=== PATIENT | male | born 1970 | race Two or more races ===

== ENCOUNTER 2017-06-12 16:11 | Emergency (ER) | payer OTHER ==
[~2017-06-12] VITALS: Ht 193 cm; Wt 90.7 kg
[~2017-06-12 16:11] MED LIST: DICLOFENAC SODI50 MG PO; NORFLEX100MG PO
== END 2017-06-12 17:38 | disposition home or self-care (01) ==
LOC: ER 16:11
DX: M54.5 Low back pain (principal)

== ENCOUNTER 2017-07-08 07:45 | Inpatient (IN) | payer OTHER ==
[~2017-07-08] VITALS: Ht 193 cm; Wt 74.8 kg
[2017-07-08] MEDS ORDERED: NEUPRO1 EAC1 TD (10:01)
[2017-07-08] MEDS ORDERED: STALEVO 125 TA1 EACH PO (10:02)
[2017-07-10] MEDS ORDERED: CIPROFLOXACIN750 MG PO (15:32)
[2017-07-10] MEDS ORDERED: AMOX-CLAV 875-1 EACH PO (15:32)
[2017-07-10] MEDS ORDERED: CLONAZEPAM1 MG PO (15:32)
[2017-07-10] MEDS ORDERED: COLACE100 MG PO (15:32)
[2017-07-10] MEDS ORDERED: NEURONTIN800 MG PO (15:32)
[2017-07-10] MEDS ORDERED: PERCOCET 5-3251 EACH PO (15:32)
[2017-07-23] MEDS ORDERED: INTESTINEX680 M1 PO (17:02)
[2017-07-23] MEDS ORDERED: AMOX-CLAV 875-1 EACH PO (17:02)
[2017-07-23] MEDS ORDERED: ZANTAC300 MG PO (17:02)
[2017-07-23] MEDS ORDERED: BACTRIM DS TAB1 EACH PO (17:02)
== END 2017-07-11 14:58 | disposition home or self-care (01) | DRG 460 ==
LOC: O/R 07-10 05:12 → SURH 07-10 07:45 → PED 07-10 20:22
PROVIDERS: Orthopaedic Surgery Orthopaedic Surgery of the Spine
PROC: 0SG10AJ Fusion of 2 or more Lumbar Vertebral Joints with Interbody Fusion Device, Posterior Approach, Anterior Column, Open Approach (ICD-10-PCS; 2017-07-10)
PROC: 0ST20ZZ Resection of Lumbar Vertebral Disc, Open Approach (ICD-10-PCS; 2017-07-10)
PROC: 07DS3ZZ Extraction of Vertebral Bone Marrow, Percutaneous Approach (ICD-10-PCS; 2017-07-10)
PROC: 0SG10A0 Fusion of 2 or more Lumbar Vertebral Joints with Interbody Fusion Device, Anterior Approach, Anterior Column, Open Approach (ICD-10-PCS; principal; 2017-07-10 12:00)
DX: M47.26 Other spondylosis with radiculopathy, lumbar region (principal); M51.16 Intervertebral disc disorders with radiculopathy, lumbar region; M41.86 Other forms of scoliosis, lumbar region; M48.061 Spinal stenosis, lumbar region without neurogenic claudication

== ENCOUNTER → 2017-07-23 | Emergency (ER) | payer OTHER ==
[~2017-07-23] VITALS: Ht 193 cm; Wt 74.8 kg
[~2017-07-23] MED LIST changes: +AMOX-CLAV 875-1 EACH PO; +BACTRIM DS TAB1 EACH PO; +CIPROFLOXACIN750 MG PO; +CLONAZEPAM1 MG PO; +COLACE100 MG PO; +INTESTINEX680 M1 PO; +NEUPRO1 EAC1 TD; +NEURONTIN800 MG PO; +PERCOCET 5-3251 EACH PO; +STALEVO 125 TA1 EACH PO; +ZANTAC300 MG PO
== END | disposition home or self-care (01) ==
LOC: ER 11:03
DX: L03.312 Cellulitis of back [any part except buttock and flank] (principal); T81.4XXS Infection following a procedure, sequela; B99.8 Other infectious disease

== ENCOUNTER 2020-09-08 11:50 | Emergency (ER) | payer OTHER ==
[~2020-09-08] VITALS: Ht 193 cm; Wt 74.8 kg
[2020-09-08] MEDS ORDERED: ORPHENADRI30 MG/1 M1 IM (14:18)
[2020-09-08] MEDS ORDERED: PREDNISONE20 MG PO (14:18)
[2020-09-08] MEDS ORDERED: TORADOL60 MG IM (14:18)
[2020-09-08] MEDS ORDERED: ULTRAM50 MG PO (14:18)
[2020-09-08] MEDS ORDERED: SKELAXIN800 MG PO (14:18)
[2020-09-12] MEDS ORDERED: STALEVO 125 TA1 EACH PO (08:32)
== END 2020-09-08 14:24 | disposition home or self-care (01) ==
LOC: ER 11:50
DX: M48.062 Spinal stenosis, lumbar region with neurogenic claudication (principal)

== ENCOUNTER 2020-09-13 06:59 | Inpatient (IN) | payer OTHER ==
[~2020-09-13] VITALS: Ht 193 cm; Wt 74.8 kg
[~2020-09-13 06:59] MED LIST changes: +ORPHENADRI30 MG/1 M1 IM; +PREDNISONE20 MG PO; +SKELAXIN800 MG PO; +TORADOL60 MG IM; +ULTRAM50 MG PO
[2020-09-13] MEDS ORDERED: SELEGILINE HCL5 MG (13:05)
[2020-09-13] MEDS ORDERED: MEDROLPACK PO (13:37)
[2020-09-13] MEDS ORDERED: NEURONTIN800 MG PO (13:37)
[2020-09-13] MEDS ORDERED: DIAZEPAM5 MG PO (13:37)
[2020-09-13] MEDS ORDERED: PERCOCET 5-3251 EACH PO (13:37)
[2020-09-13] MEDS ORDERED: AMOX-CLAV 875-1 EAC1 PO (13:37)
== END 2020-09-14 16:21 | disposition home or self-care (01) | DRG 455 ==
LOC: SURH 06:59 → PED 08:04 → O/R 08:04 → SURH 13:30 → PED 23:42
PROVIDERS: ADMIT Orthopaedic Surgery Orthopaedic Surgery of the Spine; ATTEND Orthopaedic Surgery Orthopaedic Surgery of the Spine
PROC: 0SG30AJ Fusion of Lumbosacral Joint with Interbody Fusion Device, Posterior Approach, Anterior Column, Open Approach (ICD-10-PCS; 2020-09-13)
PROC: 0SG3071 Fusion of Lumbosacral Joint with Autologous Tissue Substitute, Posterior Approach, Posterior Column, Open Approach (ICD-10-PCS; 2020-09-13)
PROC: 01Q Peripheral Nervous System, Repair (ICD-10-PCS; 2020-09-13)
PROC: 0QW004Z Revision of Internal Fixation Device in Lumbar Vertebra, Open Approach (ICD-10-PCS; 2020-09-13)
PROC: 0QP005Z Removal of External Fixation Device from Lumbar Vertebra, Open Approach (ICD-10-PCS; 2020-09-13)
PROC: 07DR3ZZ Extraction of Iliac Bone Marrow, Percutaneous Approach (ICD-10-PCS; 2020-09-13)
PROC: 0ST40ZZ Resection of Lumbosacral Disc, Open Approach (ICD-10-PCS; principal; 2020-09-13 13:30)
DX: M51.37 Other intervertebral disc degeneration, lumbosacral region (principal); M48.07 Spinal stenosis, lumbosacral region; M54.17 Radiculopathy, lumbosacral region

== ENCOUNTER 2024-05-09 09:56 | Emergency (ER) | payer OTHER ==
[~2024-05-09] VITALS: Ht 190.5 cm; Wt 68.0 kg
[~2024-05-09 09:56] MED LIST changes: +AMOX-CLAV 875-1 EAC1 PO; +DIAZEPAM5 MG PO; +DUI500 PO; +DULCOLAX STOOL100 MG PO; +MEDROLPACK PO; +SELEGILINE HCL5 MG
[2024-05-09] MEDS ORDERED: NEUPRO1 EACH TOP (10:29)
== END 2024-05-09 10:52 | disposition home or self-care (01) ==
LOC: ER 09:56
DX: R53.81 Other malaise (principal); G20.B2 Parkinson's disease with dyskinesia, with fluctuations; Z88.8 Allergy status to other drugs, medicaments and biological substances

== ENCOUNTER 2024-05-13 21:22 | Emergency (ER) | payer OTHER ==
[~2024-05-13] VITALS: Ht 190.5 cm; Wt 69.4 kg
[~2024-05-13 21:22] MED LIST changes: +NEUPRO1 EACH TOP
[2024-05-13] MEDS ORDERED: KETOROLAC TROMETHAMINE 30 MG VIAL IM STA (22:07)
[2024-05-13] MEDS ORDERED: ORPHENADRINE CITRATE 30 MG/ML AMPUL IM STA (22:07)
[2024-05-13] MEDS ORDERED: KETOROLAC TROMETHAMINE 60 MG VIAL IM ONE (22:27)
[2024-05-13] MEDS ORDERED: ORPHENADRINE CITRATE 30 MG/ML AMPUL ONE (22:27)
== END 2024-05-13 22:48 | disposition home or self-care (01) ==
LOC: ER 21:25
DX: M54.50 Low back pain, unspecified (principal); Z88.8 Allergy status to other drugs, medicaments and biological substances
CPT/HCPCS: 96372; 99282; J1885; J2360

== ENCOUNTER 2024-08-06 12:15 | Inpatient (IN) | payer OTHER ==
[~2024-08-06] VITALS: Ht 121.9 cm; Wt 69.4 kg
[2024-08-06] MEDS ORDERED: STALEVO (13:20)
[2024-08-10] MEDS ORDERED: VANCOMYCIN HCL 1,000 MG VIAL ONE (10:15)
[2024-08-10] MEDS ORDERED: HEMOSTATIC MATRIX WITH THROMBIN KIT TOP ONE ×5 (10:15→12:43)
[2024-08-10] MEDS ORDERED: METHYLPREDNISOLONE SOD SUCC 125 MG VIAL ONE (10:16)
[2024-08-10] MEDS ORDERED: CEFAZOLIN SODIUM 1,000 MG VIAL ONE ×2 (10:16→17:39)
[2024-08-10] MEDS ORDERED: AMOX-CLAV 875-1 EACH PO (10:51)
[2024-08-10] MEDS ORDERED: PERCOCET 5-3251 EACH PO (10:51)
[2024-08-10] MEDS ORDERED: ENALAPRILAT DIHYDRATE 1.25 MG/ML VIAL IV PRN (11:00)
[2024-08-10] MEDS ORDERED: PROMETHAZINE HCL 50 MG/ML AMPUL IM PRN (11:00)
[2024-08-10] MEDS ORDERED: 0.9 % SODIUM CHLORIDE 1,000 ML IV SCH (11:00)
[2024-08-10] MEDS ORDERED: TRANEXAMIC ACID 100MG/1ML (1000MG) AMPUL IV ONE ×2 (11:37→13:55)
[2024-08-10] MEDS ORDERED: THROMBIN,HU/FIBRINOGEN/CALCIUM 10 ML SYRINGE TOP ONE (11:44)
[2024-08-10] MEDS ORDERED: MORPHINE SULFATE 4 MG,MORPHINE SULFATE 2 MG IV SCH (12:00)
[2024-08-10] MEDS ORDERED: DOCUSATE SODIUM 100MG CAP PO SCH (13:00)
[2024-08-10] MEDS ORDERED: VANCOMYCIN HCL 1,000 MG VIAL IV ONE (14:15)
[2024-08-10] MEDS ORDERED: VANCOMYCIN HCL 1,000 MG VIAL SPEPROC ONE (14:15)
[2024-08-10] MEDS ORDERED: VANCOMYCIN HCL 1,000 MG VIAL IR ONE (14:15)
[2024-08-10] MEDS ORDERED: MORPHINE SULFATE 4 MG/ML VIAL IV ONE ×2 (15:00→15:30)
[2024-08-10] MEDS ORDERED: CEFAZOLIN SODIUM 1,000 MG in 0.9 % SODIUM CHLORIDE 50 ML IV SCH (17:00)
[2024-08-10] MEDS ORDERED: FAMOtidine 20 MG TABLET PO SCH (17:00)
[2024-08-10] MEDS ORDERED: ENALAPRILAT DIHYDRATE 1.25 MG/ML VIAL IV ONE ×2 (17:17→17:25)
[2024-08-10 19:02] VITALS: BP 149/77; O2SAT 97
[2024-08-10] MEDS ORDERED: ACETAMINOPHEN 500 MG GEL..CAP PO SCH (20:00)
[2024-08-10] MEDS ORDERED: VANCOMYCIN HCL 1,000 MG VIAL IV SCH (21:00)
[2024-08-10] MEDS ORDERED: GABAPENTIN 800 MG TABLET PO SCH (21:00)
[2024-08-10 22:33] VITALS: O2SAT 97
[2024-08-11] VITALS (10 sets, daily range): BP systolic 123–139; BP diastolic 70–83; O2SAT 90–100
[2024-08-11] MEDS ORDERED: SODIUM CHLORIDE 0.45 % 1,000 ML IV SCH
[2024-08-11] MEDS ORDERED: OxyCODONE HCL 5 MG TABLET (ROXICODONE) PO PRN (06:01)
[2024-08-11] MEDS ORDERED: VANCOMYCIN HCL 1,000 MG VIAL ONE ×2 (07:18→14:32)
[2024-08-11 08:19] LABS: HEMATOCRIT 31.8 % (39.0-48.0); HEMOGLOBIN 10.7 g/dL (13-16.00); MEAN CELL VOLUME 78.3 fL (80.0-100.00); MEAN CORPUSCULAR HEMOGLOBIN 26.4 pg (27.00-32.0); MEAN CORPUSCULAR HGB CONC 33.7 g/dl (32.0-36.0); PLATELET COUNT 147 K/uL (150-450); RED BLOOD COUNT 4.06 M/uL (4.00-6.00)
[2024-08-11 08:52] LABS: CALCIUM 8.2 mg/dL (8.5-10.1); CREATININE SERUM 0.76 mg/dL (0.70-1.30); GFR 106.48; POTASSIUM 3.83 mEq/L (3.5-5.1)
[2024-08-11] MEDS ORDERED: TAMSULOSIN HCL 0.4 MG CAP PO SCH (09:00)
[2024-08-12 00:35] VITALS: O2SAT 89
[2024-08-12 05:09] VITALS: O2SAT 97
[2024-08-12 08:45] VITALS: BP 138/61; O2SAT 96
== END 2024-08-12 15:07 | disposition home or self-care (01) | DRG 428 ==
LOC: O/R 08-10 06:40 → SURH 08-10 12:15
PROVIDERS: ADMIT Orthopaedic Surgery Orthopaedic Surgery of the Spine; ATTEND Orthopaedic Surgery Orthopaedic Surgery of the Spine
PROC: 0SG1071 Fusion of 2 or more Lumbar Vertebral Joints with Autologous Tissue Substitute, Posterior Approach, Posterior Column, Open Approach (ICD-10-PCS; 2024-08-10)
PROC: 0ST20ZZ Resection of Lumbar Vertebral Disc, Open Approach (ICD-10-PCS; 2024-08-10)
PROC: 07DR0ZZ Extraction of Iliac Bone Marrow, Open Approach (ICD-10-PCS; 2024-08-10)
PROC: 4A1104G Monitoring of Peripheral Nervous Electrical Activity, Intraoperative, Open Approach (ICD-10-PCS; 2024-08-10)
PROC: 4A12X4Z Monitoring of Cardiac Electrical Activity, External Approach (ICD-10-PCS; 2024-08-10)
PROC: XRGC0R7 Fusion of 2 or more Lumbar Vertebral Joints using Custom-Made Anatomically Designed Interbody Fusion Device, Open Approach, New Technology Group 7 (ICD-10-PCS; principal; 2024-08-10 16:15)
DX: M48.062 Spinal stenosis, lumbar region with neurogenic claudication (principal); M51.360 Other intervertebral disc degeneration, lumbar region with discogenic back pain only

== ENCOUNTER → 2024-10-25 | Emergency (ER) | payer OTHER ==
[~2024-10-25] VITALS: Ht 182.9 cm; Wt 68.0 kg
[~2024-10-25] MED LIST changes: +STALEVO
== END | disposition left against medical advice (07) ==
LOC: ER 15:22
DX: Z53.21 Procedure and treatment not carried out due to patient leaving prior to being seen by health care provider (principal)